=== PATIENT | female | born 1945 | race Caucasian/White ===

== ENCOUNTER → 2017-05-12 | Outpatient (CLI) | payer MEDICARE, OTHER | LOC: M.RAD 08:50 | DX: M47.894 Other spondylosis, thoracic region (principal) ==

== ENCOUNTER → 2017-07-14 | Outpatient (CLI) | payer MEDICARE, OTHER | LOC: M.RAD 09:23 | DX: Z12.31 Encounter for screening mammogram for malignant neoplasm of breast (principal); C90.00 Multiple myeloma not having achieved remission; R07.89 Other chest pain; Z92.89 Personal history of other medical treatment ==

== ENCOUNTER → 2017-07-20 | Outpatient (CLI) | payer MEDICARE, OTHER ==
--- NOTE | 2017-07-23 13:46 | S ---
[address] [address] SURGICAL PATH RPT PROCEDURE Name: LIZBETH MARSHALL Room: [facility].#: [id number] Admission: 07/20/17 Date of : 49 Discharge: Report #: [id number] Path Case #: [id number] PATHOLOGY REPORT COLLECTION DATE: 07/20/2017 RECEIVED DATE: 07/20/2017 SUBMITTING PHYS: Dr. Florian Portillo OTHER PHYS: Dr. 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 - DUCTAL CARCINOMA IN SITU (DCIS), NUCLEAR GRADE 3, COMEDO-TYPE, ASSOCIATED WITH CALCIFICATIONS. See comment. (ANTONINO:mmlynette; 07/21/2017) COMMENT: Specimen type: Image-guided core biopsies Tumor site: Right breast Tumor quantitation: Involves at least 90% of all submitted tissues Histologic type: Ductal adenocarcinoma Histologic grade: High grade (III / III) Tubules, nuclei and mitoses: 2, 3, 3 LVSI: Identified Microcalcifications: Identified in invasive tumor, DCIS and non-neoplastic breast Markers: Breast tumor profile pending Block: A1 In several areas the tumor is associated with a prominent vascular proliferation.. Lymphovascular invasion is also identified. There is abundant comedo-type DCIS in association with the tumor as well as seen outside the invasive tumor front suggesting an extensive intraductal component. Breast tumor profile studies pending on A1 will be the subject of an addendum report. Reviewed with Dr. Wayne Newsome who agrees with the diagnosis. Kateryna Bauman ([facility] Breast Navigator) notified at approximately 1235 on 07/21/2017. (ANTONINO:mml; 07/21/2017) PATHOLOGIST: John Caldwell M.D. REPORT ELECTRONICALLY SIGNED BY: John Caldwell M.D. DATE/TIME: 07/21/2017 14:25 [place] [address] SURGICAL PATH RPT PROCEDURE Name: LIZBETH MARSHALL Room: [facility]#: [id number] Admission: 07/20/17 Date of : 49 Discharge: Report #: [id number] Path Case #: [id number] * * * * * * * * * * * * GROSS PATHOLOGY: Received in formalin labeled "Lizbeth Marshall, right breast calcification," are multiple needle cores of yellow-mirza fibrofatty tissue measuring 2.5 x 2.7 x 0.5 cm in aggregate dimensions. The tissue is submitted in its entirety in cassettes A1 through A3. The cold ischemic time is 5 minutes. The total formalin fixation time is 10 hours and 20 minutes. (TSD; 07/20/2017) CLINICAL HISTORY: None provided INITIAL CPT CODE(S): A; 06278, 56903(4) Professional services performed by [facility] at [facility], [address], [place] [address]. Technical services performed by [facility] at [address] [place] [address], [facility] [address] [place] [address]. PROCEDURE REPORT (Order Date: 07/22/2017 00:00) COMMENT: Quantitative image analysis was performed on block A1. Please see next page for scanned image of results. ([facility] 07/23/2017) PATHOLOGIST: Edis Contreras M.D. REPORT ELECTRONICALLY SIGNED BY: Edis Contreras M.D. DATE/TIME: 07/23/2017 13:44 [facility] [address] [place] [address] PHONE: [phone] DIRECTOR: Dewayne Owusu M.D. * * * END OF REPORT * * *
== END | disposition home or self-care (01) ==
LOC: M.RAD 07-14 14:00
DX: D05.11 Intraductal carcinoma in situ of right breast (principal)

== ENCOUNTER → 2018-08-16 | Outpatient (CLI) | payer MEDICARE, OTHER | LOC: M.RAD 09:44 | DX: C79.51 Secondary malignant neoplasm of bone (principal); C50.111 Malignant neoplasm of central portion of right female breast; M79.604 Pain in right leg; M79.605 Pain in left leg; Z17.1 Estrogen receptor negative status [ER-] ==